=== PATIENT | female | born 1960 | race Caucasian/White ===

== ENCOUNTER 2017-04-04 13:28 | Emergency (ER) | payer BC ==
[2017-04-04] MEDS ORDERED: HYDROmorphone* 1 MG/ML 1 ML SYR IM ONE (14:15)
--- NOTE | 2017-04-04 14:56 | RAD ---
INDICATION: Right wrist injury. TECHNIQUE: 3 views of the right wrist were obtained. FINDINGS: There is diffuse soft tissue swelling around the wrist which is most prominent along the lateral aspect of the wrist. There is an oblique fracture extending through the lateral aspect of the distal radius and radial styloid process to the articular margin. There is minimal distraction of the distal fracture fragment. There is also lucency which projects over the proximal portion of the scaphoid bone likely related to the radial fracture although a scaphoid fracture cannot be excluded. IMPRESSION: 1. OBLIQUE INTRA-ARTICULAR FRACTURE OF THE DISTAL RADIUS. 2. THERE IS LUCENCY OVERLYING THE PROXIMAL SCAPHOID BONE LIKELY SECONDARY TO THE RADIAL FRACTURE ALTHOUGH A NONDISPLACED SCAPHOID FRACTURE CANNOT BE EXCLUDED. THIS CAN BE FURTHER EVALUATED WITH A CT OF THE WRIST.
--- NOTE | 2017-04-04 16:27 | RAD ---
INDICATION: Traumatic fracture right radius COMPARISON: Right wrist same date TECHNIQUE: Noncontrast axial source images were obtained followed by coronal and sagittal reconstructions. FINDINGS: There is a nondisplaced fracture the radial styloid. There are no other fractures. Specifically there is no evidence of a navicular fracture. The carpals articulate normally. There is mild diffuse soft tissue swelling. No additional findings IMPRESSION: NONDISPLACED FRACTURE RADIAL STYLOID.
--- NOTE | 2017-04-04 16:42 | ED ---
Tigre Gardner Benjamin, scribed for Fariha Sage MD on 04/04/17 at 1437 . Upper Extremity Pain - HPI Summary HPI Summary: 56yo female c/o right wrist pain after a mechanical fall landing on her right hand 3 days ago. Pt has chronic back pain and neck pain which she takes 4mm QID dilaudid and 75 mcg fentanyl patch every 48hrs. Pt also reports pain in right hip and right shoulder. - History of Current Complaint Chief Complaint: EDExtremityUpper Stated Complaint: RIGHT WRIST PAIN Time Seen by Provider: 04/04/17 13:58 Hx Obtained From: Patient Mechanism Of Injury: Fall From A Standing Position Onset/Duration: Started Days Ago - 3 days, Still Present Timing: Constant Severity Initially: Severe Severity Currently: Severe Pain Location: Shoulder - right, Wrist - right, Other: - right hip Aggravating Factor(s): Movement, Abduction, Adduction, Twisting Alleviating Factor(s): Nothing Associated Signs & Symptoms: Positive: Negative - Allergies/Home Medications Allergies/Adverse Reactions: Allergies Allergy/AdvReac Type Severity Reaction Status Date / Time Codeine Allergy GI Upset Verified 02/08/17 13:20 PMH/Surg Hx/FS Hx/Imm Hx Endocrine/Hematology History: Denies: Hx Diabetes, Hx Systemic Lupus Erythematosus Cardiovascular History: Reports: Hx Congestive Heart Failure, Hx Hypertension Respiratory History: Reports: Hx Chronic Obstructive Pulmonary Disease (COPD) History: Denies: Hx Dialysis, Hx Renal Disease Musculoskeletal History: Reports: Hx Arthritis, Hx Rheumatoid Arthritis, Hx Back Problems Sensory History: Reports: Hx Contacts or Glasses Opthamlomology History: Reports: Hx Contacts or Glasses Neurological History: Reports: Hx Headaches - Cancer History Hx Chemotherapy: No - Surgical History Surgery Procedure, Year, and Place: T&A, D&C, tubal ligation, broken nose repair and cheek repair, R hip surgery, Infectious Disease History: Denies: Traveled Outside the [place] in Last 30 Days - Family History Known Family History: Negative: Hypertension, Diabetes - Social History Occupation: Disabled Lives: With Family Alcohol Use: Occasionally Alcohol Amount: 1-3/week Substance Use Type: Reports: None Smoking Status (MU): Former Smoker Review of Systems Constitutional: Negative Eyes: Negative ENT: Negative Cardiovascular: Negative Respiratory: Negative Gastrointestinal: Negative Genitourinary: Negative Positive: Arthralgia - right wrist, right shoulder, right hip Skin: Negative Neurological: Negative Psychological: Normal All Other Systems Reviewed And Are Negative: Yes Physical Exam Triage Information Reviewed: Yes Vital Signs On Initial Exam: Initial Vitals Temp Pulse Resp BP Pulse Ox 96.9 F 74 18 134/86 100 04/04/17 13:30 04/04/17 13:30 04/04/17 13:30 04/04/17 13:30 04/04/17 13:30 Vital Signs Reviewed: Yes Appearance: Positive: Well-Appearing, Well-Nourished, Pain Distress - mild Skin: Positive: Warm, Skin Color Reflects Adequate Perfusion, Dry Head/Face: Positive: Normal Head/Face Inspection Eyes: Positive: EOMI, JERSON ENT: Positive: Normal ENT inspection Neck: Positive: Supple, Nontender Respiratory/Lung Sounds: Positive: Clear to Auscultation, Breath Sounds Present Cardiovascular: Positive: RRR Abdomen Description: Positive: Nontender, Soft Bowel Sounds: Positive: Present Musculoskeletal: Positive: Limited @ - limited ROM at right wrist due to pain, Pain @ - right wrist - distal radius over the scaphoid tenderness, no other brant tenderness. Neurological: Positive: Sensory/Motor Intact, Alert, Oriented to Person Place, Time, CN Intact II-III Psychiatric: Positive: Affect/Mood Appropriate Procedures - Splinting Location: right arm Hand-Made Type: orthoglass Splint: sugar-tong Pre-Proc Neuro Vasc Exam: normal Post-Proc Neuro Vasc Exam: unchanged from pre-exam Diagnostics - Vital Signs Vital Signs Temp Pulse Resp BP Pulse Ox 04/04/17 13:30 96.9 F 74 18 134/86 100 - Laboratory Lab Statement: Any lab studies that have been ordered have been reviewed, and results considered in the medical decision making process. - Radiology Right Wrist XR Xray Interpretation: Positive (See Comments) - IMPRESSION: 1. OBLIQUE INTRA- ARTICULAR FRACTURE OF THE DISTAL RADIUS. 2. THERE IS LUCENCY OVERLYING THE PROXIMAL SCAPHOID BONE LIKELY SECONDARY TO THE RADIAL FRACTURE ALTHOUGH A NONDISPLACED SCAPHOID FRACTURE CANNOT BE EXCLUDED. THIS CAN BE FURTHER EVALUATED WITH A CT OF THE WRIST. Radiology Interpretation Completed By: Radiologist - CT CT LUE WO CT Interpretation: Positive (See Comments) - IMPRESSION: NONDISPLACED FRACTURE RADIAL STYLOID. CT Interpretation Completed By: Radiologist Course/Dx - Course Course Of Treatment: Reviewed pt's medications list and allergies. Blood pressure noted. Discussed with Dr. Santiago (Ortho) for an ortho consult at 1504. - Diagnoses Provider Diagnoses: Wrist fracture Discharge - Discharge Plan Condition: Critical Disposition: HOME Patient Education Materials: Wrist Fracture in Adults (ED) Referrals: Douglas Peguero DO [Primary Care Provider] - Desmond Santiago MD [Medical Doctor] - 2 Days (04/06/17 at 8:30am.) The documentation as recorded by the Tigre bailey Benjamin accurately reflects the service I personally performed and the decisions made by me, Fariha Sage MD.
[2017-04-04 16:53] VITALS: BP 114/76
== END 2017-04-04 16:42 | disposition home or self-care (01) ==
LOC: ED 13:28
DX: S52.571A Other intraarticular fracture of lower end of right radius, initial encounter for closed fracture (principal); S52.514A Nondisplaced fracture of right radial styloid process, initial encounter for closed fracture; M25.511 Pain in right shoulder; M25.551 Pain in right hip; W19.XXXA Unspecified fall, initial encounter; Y93.9 Activity, unspecified; Y92.9 Unspecified place or not applicable; G89.29 Other chronic pain; M54.9 Dorsalgia, unspecified; M54.2 Cervicalgia; I50.9 Heart failure, unspecified; I10 Essential (primary) hypertension; J44.9 Chronic obstructive pulmonary disease, unspecified; Z88.5 Allergy status to narcotic agent; Z87.891 Personal history of nicotine dependence
CPT/HCPCS: 96372; 99282; J1170

== ENCOUNTER 2021-05-18 12:23 | Observation (INO) ==
[2021-05-18] MEDS ORDERED: NS 0.9% 1000 ml BAG 1,000 ML IV ONE (12:32)
[2021-05-18 12:40] LABS: ABS Eosinophils 0.1 10^3/ul (0-0.6); ABS Lymphocytes 1.2 10^3/ul (1.0-4.8); ABS Monocytes 0.8 10^3/ul (0-0.8); ABS Neutrophils 6.9 10^3/ul (1.5-7.7); Eosinophil % 1.4 %; Hematocrit 45 % (35-47); Hemoglobin 15.3 g/dL (12.0-16.0); Lymphocyte % 13.2 %; Mean Corpuscular HGB Conc 34 g/dL (31-36); Mean Corpuscular Hemoglobin 34 pg (27-31); Mean Corpuscular Volume 98 fL (80-97); Mean Platelet Volume 8.2 fL (7.4-10.4); Nucleated Red Blood Cells % 0.1; Platelet Count 254 10^3/uL (150-450); Red Blood Count 4.57 10^6 /uL (3.70-4.87); Red Cell Distribution Width 14 % (10-15); White Blood Count 9.1 10^3/uL (3.5-10.8)
[2021-05-18] MEDS ORDERED: Iodixanol (CONTRAST) 320 MG/ML 100 ML SDV IV ONE (12:49)
[2021-05-18 12:52] LABS: Activated Partial Thrombo Time 27.4 seconds (26.0-38.0)
[2021-05-18 13:25] LABS: Albumin 4.2 g/dL (3.2-5.2); Albumin/Globulin Ratio 1.4 (1-3); Calcium 9.3 mg/dL (8.6-10.3); EGFR African American 94.7 (>60); EGFR Non-African American 78.3 (>60); Globulin 3.1 g/dL (2-4); Potassium 3.9 mmol/L (3.5-5.0); Total Bilirubin 1.1 mg/dL (0.2-1.0); Total Protein 7.3 g/dL (6.4-8.9)
[2021-05-18 13:47] LABS: C Reactive Protein 41.14 mg/L (<8.01)
[2021-05-18 14:14] LABS: Rapid COVID-19 Molecular Undetected (Undetected)
[2021-05-18 14:28] LABS: TSH Ultra Thyroid Stim Horm 1.29 mcIU/mL (0.34-5.60)
[2021-05-18] MEDS ORDERED: Metoprolol Tartrate 5 mg VIAL 5 ml VIAL (1 mg/ml) IV ONE (14:36)
[2021-05-18 17:02] LABS: Erythrocyte Sed Rate 5 mm/Hr (0-29)
[2021-05-18 19:43] LABS: Hepatitis B Surface Antigen Nonreactive (Nonreactive)
[2021-05-18 19:48] LABS: Hepatitis A Ab IgM Negative (Negative)
[2021-05-18 19:49] LABS: Hepatitis B Core IgM Nonreactive (Nonreactive)
[2021-05-18 20:52] LABS: Hepatitis C Antibody Reactive (Negative)
[2021-05-18] MEDS: Vortioxetine 10 mg TAB (NF) PO SCH (23:44)
[2021-05-19] MEDS: Amphetamine/Dextroam ER 10(NF) 10 mg CAP.ER PO SCH (08:53)
[2021-05-19] MEDS ORDERED: Vortioxetine 10 mg TAB (NF) PO SCH (09:00)
[2021-05-19] MEDS: Mometasone/Formoter 100/5 MDI INH SCH ×2 (09:41→21:37)
[2021-05-19] MEDS ORDERED: Gadoteridol (CONTRAST) 279.3 MG/ML 10 ML IV ONE (14:09)
[2021-05-19] MEDS: Albuterol HFA INHALER 8 gm MDI INH PRN (21:38)
[2021-05-19] MEDS: Vortioxetine 10 mg TAB (NF) PO SCH (22:20)
[2021-05-20 06:02] LABS: ABS Eosinophils 0.2 10^3/ul (0-0.6); ABS Lymphocytes 1.6 10^3/ul (1.0-4.8); ABS Monocytes 0.4 10^3/ul (0-0.8); ABS Neutrophils 3.1 10^3/ul (1.5-7.7); Eosinophil % 3.7 %; Hematocrit 39 % (35-47); Lymphocyte % 29.5 %; Mean Corpuscular HGB Conc 33 g/dL (31-36); Mean Corpuscular Hemoglobin 34 pg (27-31); Mean Corpuscular Volume 101 fL (80-97); Mean Platelet Volume 8.3 fL (7.4-10.4); Platelet Count 235 10^3/uL (150-450); Red Blood Count 3.88 10^6 /uL (3.70-4.87); Red Cell Distribution Width 14 % (10-15); White Blood Count 5.3 10^3/uL (3.5-10.8)
[2021-05-20 06:29] LABS: Albumin 3.5 g/dL (3.2-5.2); Albumin/Globulin Ratio 1.3 (1-3); Calcium 8.7 mg/dL (8.6-10.3); EGFR African American 91.9 (>60); Globulin 2.6 g/dL (2-4); Potassium 3.8 mmol/L (3.5-5.0); Total Bilirubin 0.6 mg/dL (0.2-1.0); Total Protein 6.1 g/dL (6.4-8.9)
[2021-05-20] MEDS: Albuterol HFA INHALER 8 gm MDI INH PRN (08:09)
[2021-05-20] MEDS: Mometasone/Formoter 100/5 MDI INH SCH ×2 (08:18→23:26)
[2021-05-20] MEDS: Amphetamine/Dextroam ER 10(NF) 10 mg CAP.ER PO SCH (09:05)
[2021-05-20] MEDS ORDERED: Lactated Ringers 1000 ml BAG 1,000 ML IV ONE (11:03)
[2021-05-20 16:18] VITALS: BP 135/82
[2021-05-21] MEDS: Mometasone/Formoter 100/5 MDI INH SCH (08:39)
[2021-05-21 12:48] LABS: JO-1 Antibody <0.2 U; RNP Antibody, IgG <0.2 U; SS-A/Ro Antibody <0.2 U; SS-B/La Antibody <0.2 U; Sm (Smith) IgG Antibody <0.2 U
[2021-05-21 17:08] LABS: Cyclic Citrullinated Pept IgG <15.6 U
[2021-05-22 22:31] LABS: Anaplasma phagocytophilum Negative (Negative); B. miyamotoi PCR, B Negative (Negative); Babesia divergens/MO-1 Negative (Negative); Babesia ducani Negative (Negative); Ehrlichia chaffeensis Negative (Negative); Ehrlichia ewingii/canis Negative (Negative); Ehrlichia muris eauclairensis Negative (Negative)
[2021-05-23 12:35] LABS: Complement C3 125 mg/dL (75 - 175)
[2021-05-24 12:08] LABS: Cryoglobulin Negative %ppt (Negative)
== END 2021-05-20 19:15 | disposition home or self-care (01) ==
LOC: MED 12:23 → ED 12:23 → MED 19:14 → SUATTDRO 20:17
PROVIDERS: ADMIT Physician Assistant Medical; ATTEND Internal Medicine

== ENCOUNTER 2021-07-29 17:30 | Inpatient (IN) ==
[2021-07-29] MEDS ORDERED: Norepinephrine 16MCG/ML IVPRE 4,000 MCG/250 ML BAG IV ONE (17:42)
[2021-07-29 17:52] LABS: PCO2 Arterial 41 mmHg (35-45); PO2 Arterial 129 mmHg (80-100)
[2021-07-29 17:57] LABS: Urine Appearance Clear; Urine Bilirubin Negative (Negative); Urine Blood Negative (Negative); Urine Color Straw; Urine Glucose Negative (Negative); Urine Ketones Negative (Negative); Urine Nitrite Negative (Negative); Urine Protein Negative (Negative); Urine Specific Gravity 1.006 (1.002-1.030); Urine Urobilinogen Negative (Negative)
[2021-07-29] MEDS ORDERED: Norepinephrine 16MCG/ML IVPRE 4,000 MCG/250 ML BAG IV SCH (18:00)
[2021-07-29] MEDS ORDERED: Lactated Ringers 1000 ml BAG 1,000 ML IV SCH (18:00)
[2021-07-29 18:05] LABS: ABS Eosinophils 0.1 10^3/ul (0-0.6); ABS Lymphocytes 1.2 10^3/ul (1.0-4.8); ABS Monocytes 0.4 10^3/ul (0-0.8); ABS Neutrophils 2.3 10^3/ul (1.5-7.7); Eosinophil % 2.3 %; Hematocrit 38 % (35-47); Hemoglobin 12.8 g/dL (12.0-16.0); Lymphocyte % 30.4 %; Mean Corpuscular HGB Conc 33 g/dL (31-36); Mean Corpuscular Hemoglobin 34 pg (27-31); Mean Corpuscular Volume 102 fL (80-97); Mean Platelet Volume 8.2 fL (7.4-10.4); Platelet Count 245 10^3/uL (150-450); Red Blood Count 3.77 10^6 /uL (3.70-4.87); Red Cell Distribution Width 14 % (10-15)
[2021-07-29 18:15] LABS: Albumin 3.4 g/dL (3.2-5.2); Anion Gap 10 mmol/L (2-11); Blood Urea Nitrogen 10 mg/dL (6-24); CO2 Carbon Dioxide 21 mmol/L (22-32); Calcium 7.7 mg/dL (8.6-10.3); Chloride 109 mmol/L (101-111); Glucose 100 mg/dL (70-100); Magnesium 1.8 mg/dL (1.9-2.7); Potassium 3.1 mmol/L (3.5-5.0); Sodium 140 mmol/L (135-145); Total Protein 5.4 g/dL (6.4-8.9); eGFR CKD-EPI 81.5 (>60)
[2021-07-29 18:16] LABS: ALT 56 U/L (7-52); AST 67 U/L (13-39); Albumin/Globulin Ratio 1.7 (1-3); Alkaline Phosphatase 58 U/L (35-149); C Reactive Protein 1.45 mg/L (<8.01)
[2021-07-29] MEDS ORDERED: Magnesium Sulfate 2 gm BAG 2 GM/50 ML BAG IVPB ONE (18:22)
[2021-07-29 18:40] LABS: Influenza A Molecular Negative (Negative); Influenza B Molecular Negative (Negative); Rapid COVID-19 Molecular Undetected (Undetected)
[2021-07-29 18:49] LABS: Urine Benzodiazepine Screen None Detected (None Detect); Urine Cannabinoids Screen None Detected (None Detect); Urine Opiates Screen None Detected (None Detect)
[2021-07-29] MEDS ORDERED: Metoprolol Tartrate 5 mg VIAL 5 ml VIAL (1 mg/ml) IV ONE (18:58)
[2021-07-29 19:03] LABS: TSH Ultra Thyroid Stim Horm 1.88 mcIU/mL (0.34-5.60)
[2021-07-29] MEDS ORDERED: Azithromycin 500 mg/250 ml NS 500 MG/250 ML BAG IVPB ONE (19:14)
[2021-07-29 19:22] LABS: Phosphorus 3.5 mg/dL (2.5-5.0)
[2021-07-29] MEDS ORDERED: Albuterol/Ipratropium NEB.SOL (2.5/0.5 MG) 3 ML NEB.SOLN INH PRN (19:22)
[2021-07-29] MEDS ORDERED: Meperidine 50 mg/ml SYRINGE 1 ml IV PRN (19:23)
[2021-07-29] MEDS ORDERED: Sodium Bicarbonate 8.4% SYR 50 ml SYRINGE IV ONE (19:27)
[2021-07-29] MEDS ORDERED: Acetaminophen IV 1 GM/100ML 100 ML IV PRN (19:28)
[2021-07-29] MEDS ORDERED: Charcoal ACTIVATED 25 GM/120 ML BTL PO ONE (19:31)
[2021-07-29] MEDS: KCL 20 MEQ/100 ML IVPREMIX 20 MEQ/100 ML BAG IV SCH ×2 (19:32→22:22)
[2021-07-29] MEDS ORDERED: Propofol 10 MG/ML 20 ML BTL ONE (19:53)
[2021-07-29] MEDS ORDERED: Propofol 10 mg/ml 100 ML BTL 0 ML ONE (19:54)
[2021-07-29] MEDS: cefTRIAXone 1 gm/50 mL NS BAG 1 GM/50 ML BAG IVPB SCH (20:00)
[2021-07-29] MEDS ORDERED: Propofol 10 MG/ML 20 ML BTL IV PUSH ONE (20:16)
[2021-07-29] MEDS: Pantoprazole VIAL 40 MG VIAL IV SCH (20:48)
[2021-07-29] MEDS ORDERED: Heparin 5000 UNITS/ML 1 mL VIAL SUBCUT SCH (22:00)
[2021-07-29] MEDS ORDERED: fentaNYL 100 mcg/2 ml 50 MCG/ML VIAL ONE (22:05)
[2021-07-29] MEDS: fentaNYL 100 mcg/2 ml 50 MCG/ML VIAL IV SLOW PU PRN ×2 (22:06→23:03)
[2021-07-29 22:12] LABS: Acetaminophen < 15 mcg/mL; Alcohol, S 204 mg/dL (<13); Salicylate < 2.50 mg/dL (<30)
[2021-07-29] MEDS: Chlorhexidine MOUTHWASH 0.12% 15 ML UDC TOPICAL SCH (22:52)
[2021-07-29] MEDS ORDERED: Dexmedetomidine 1,000 MCG in NS 0.9% 250 ml 240 ML IV SCH (23:00)
[2021-07-29] MEDS ORDERED: Propofol 10 mg/ml 100 ML BTL 100 ML IV SCH (23:00)
[2021-07-29] MEDS ORDERED: Lactated Ringers 1000 ml BAG 1,000 ML IV ONE (23:40)
[2021-07-30 00:08] LABS: Creatine Kinase 47 U/L (10-223)
[2021-07-30] MEDS: KCL 20 MEQ/100 ML IVPREMIX 20 MEQ/100 ML BAG IV SCH ×2 (00:27→02:35)
[2021-07-30] MEDS: fentaNYL 100 mcg/2 ml 50 MCG/ML VIAL IV SLOW PU PRN ×3 (00:58→03:16)
[2021-07-30 00:59] LABS: Albumin 3.3 g/dL (3.2-5.2); Direct Bilirubin 0.1 mg/dL (0.03-0.18); Indirect Bilirubin 0.2 mg/dL (0.3-1.0); Total Bilirubin 0.3 mg/dL (0.2-1.0)
[2021-07-30 01:05] LABS: Albumin/Globulin Ratio 1.6 (1-3); Globulin 2.1 g/dL (2-4); Total Protein 5.4 g/dL (6.4-8.9)
[2021-07-30] MEDS: Chlorhexidine MOUTHWASH 0.12% 15 ML UDC TOPICAL SCH ×3 (02:46→08:06)
[2021-07-30 05:20] LABS: ABS Lymphocytes 0.9 10^3/ul (1.0-4.8); ABS Monocytes 0.7 10^3/ul (0-0.8); ABS Neutrophils 5.8 10^3/ul (1.5-7.7); Eosinophil % 0.4 %; Hematocrit 37 % (35-47); Hemoglobin 12.5 g/dL (12.0-16.0); Lymphocyte % 12.6 %; Mean Corpuscular HGB Conc 34 g/dL (31-36); Mean Corpuscular Hemoglobin 34 pg (27-31); Mean Corpuscular Volume 101 fL (80-97); Mean Platelet Volume 8.1 fL (7.4-10.4); Platelet Count 193 10^3/uL (150-450); Red Blood Count 3.66 10^6 /uL (3.70-4.87); Red Cell Distribution Width 14 % (10-15); White Blood Count 7.4 10^3/uL (3.5-10.8)
[2021-07-30 05:23] LABS: INR 1.04 (0.86-1.15)
[2021-07-30 05:30] LABS: Albumin 3.2 g/dL (3.2-5.2); Albumin/Globulin Ratio 1.4 (1-3); Calcium 7.7 mg/dL (8.6-10.3); Globulin 2.3 g/dL (2-4); Phosphorus 3.1 mg/dL (2.5-5.0); Total Bilirubin 0.4 mg/dL (0.2-1.0); Total Protein 5.5 g/dL (6.4-8.9); eGFR CKD-EPI 104.8 (>60)
[2021-07-30] MEDS: Saline FLUSH-CENTRAL 10 ML SYRINGE CENT\\PICC SCH (12:46)
[2021-07-30] MEDS ORDERED: Albuterol HFA INHALER 8 gm MDI INH PRN (13:38)
[2021-07-30] MEDS ORDERED: Metoprolol Tartrate 5 mg VIAL 5 ml VIAL (1 mg/ml) IV ONE (17:56)
[2021-07-30] MEDS: Multivitamins/Minerals TAB PO SCH (19:48)
[2021-07-30] MEDS: Pantoprazole VIAL 40 MG VIAL IV SCH (19:48)
[2021-07-30] MEDS: cefTRIAXone 1 gm/50 mL NS BAG 1 GM/50 ML BAG IVPB SCH (20:13)
[2021-07-30] MEDS ORDERED: CMCS: Vortioxetine 10 mg TAB (NF) PO SCH (22:00)
[2021-07-31] MEDS: Saline FLUSH-CENTRAL 10 ML SYRINGE CENT\\PICC SCH ×2 (02:44→10:05)
[2021-07-31 04:33] LABS: ABS Eosinophils 0.2 10^3/ul (0-0.6); ABS Lymphocytes 1.2 10^3/ul (1.0-4.8); ABS Monocytes 0.6 10^3/ul (0-0.8); ABS Neutrophils 3.4 10^3/ul (1.5-7.7); Eosinophil % 3.4 %; Hematocrit 35 % (35-47); Hemoglobin 11.8 g/dL (12.0-16.0); Lymphocyte % 22.4 %; Mean Corpuscular HGB Conc 34 g/dL (31-36); Mean Corpuscular Hemoglobin 34 pg (27-31); Mean Corpuscular Volume 100 fL (80-97); Mean Platelet Volume 8.1 fL (7.4-10.4); Platelet Count 188 10^3/uL (150-450); Red Cell Distribution Width 14 % (10-15); White Blood Count 5.4 10^3/uL (3.5-10.8)
[2021-07-31 04:49] LABS: Calcium 8.1 mg/dL (8.6-10.3); Phosphorus 3.3 mg/dL (2.5-5.0); Potassium 3.9 mmol/L (3.5-5.0); eGFR CKD-EPI 100.8 (>60)
[2021-07-31] MEDS ORDERED: Mometasone/Formoter 100/5 MDI INH SCH (07:00)
[2021-07-31] MEDS ORDERED: Potassium Chlor 20 meq TAB.ER PO ONE (07:24)
[2021-07-31] MEDS ORDERED: Lidocaine PATCH 5% PATCH TRANSDERM PRN (08:39)
[2021-07-31] MEDS ORDERED: CMC:Vortioxetine 10 mg TAB (NF) PO SCH (09:00)
[2021-07-31] MEDS: Multivitamins/Minerals TAB PO SCH (09:25)
[2021-07-31] MEDS ORDERED: Metoprolol Tartrate 5 mg VIAL 5 ml VIAL (1 mg/ml) IV PRN (09:56)
[2021-07-31 12:45] VITALS: BP 92/59
[2021-07-31] MEDS ORDERED: Lidocaine Patch REMOVE NOTE PATCH OFF SCH (21:00)
[2021-08-01] MEDS ORDERED: Nicotine PATCH 14 MG/24 HR PATCH TRANSDERM SCH (09:00)
== END 2021-07-31 12:24 | disposition short-term general hospital (02) | DRG 951 ==
LOC: ED 17:30 → EDHOLD 18:37 → ICU 19:29
PROVIDERS: ADMIT Internal Medicine; ATTEND Internal Medicine

== ENCOUNTER 2021-07-31 12:24 | Inpatient (IN) ==
[~2021-07-31 12:24] MED LIST: Albuterol HFA INHALER 8 gm MDI INH PRN; Nicotine GUM 2MG FRUIT FLAVOR PO PRN
[2021-07-31] MEDS ORDERED: Nicotine Lozenge mini 2 MG LOZNG.MINI MT PRN (15:00)
[2021-07-31] MEDS: Lidocaine PATCH 5% PATCH TRANSDERM SCH (15:39)
[2021-07-31] MEDS: CMCS:Ketorolac 10 mg TAB (NF) PO PRN ×2 (15:40→20:50)
[2021-07-31] MEDS: Mometasone/Formoter 100/5 MDI INH SCH (20:45)
[2021-07-31] MEDS: CMCS:Vortioxetine 10 mg TAB (NF) PO SCH (20:46)
[2021-07-31] MEDS: Albuterol/Ipratropium NEB.SOL (2.5/0.5 MG) 3 ML NEB.SOLN INH SCH (21:44)
[2021-08-01] MEDS: Albuterol/Ipratropium NEB.SOL (2.5/0.5 MG) 3 ML NEB.SOLN INH SCH ×2 (01:06→05:19)
[2021-08-01] MEDS: CMCS:Ketorolac 10 mg TAB (NF) PO PRN (04:49)
[2021-08-01] MEDS: Lidocaine Patch REMOVE NOTE PATCH OFF SCH ×2 (04:59→23:27)
[2021-08-01] MEDS ORDERED: Albuterol/Ipratropium NEB.SOL (2.5/0.5 MG) 3 ML NEB.SOLN INH PRN (06:13)
[2021-08-01] MEDS: Lidocaine PATCH 5% PATCH TRANSDERM SCH (08:05)
[2021-08-01 08:30] LABS: HDL Cholesterol 68.7 mg/dL
[2021-08-01] MEDS: Mometasone/Formoter 100/5 MDI INH SCH ×2 (08:55→21:03)
[2021-08-01] MEDS: Nicotine PATCH 14 MG/24 HR PATCH TRANSDERM SCH (08:57)
[2021-08-01] MEDS: CMCS:Vortioxetine 10 mg TAB (NF) PO SCH (21:05)
[2021-08-02] MEDS: CMCS:Ketorolac 10 mg TAB (NF) PO PRN ×4 (02:05→21:43)
[2021-08-02] MEDS: Nicotine PATCH 14 MG/24 HR PATCH TRANSDERM SCH (08:49)
[2021-08-02] MEDS: Lidocaine PATCH 5% PATCH TRANSDERM SCH (08:50)
[2021-08-02] MEDS: Mometasone/Formoter 100/5 MDI INH SCH ×2 (08:52→20:51)
[2021-08-02] MEDS: Lidocaine Patch REMOVE NOTE PATCH OFF SCH (20:54)
[2021-08-03] MEDS: CMCS:Ketorolac 10 mg TAB (NF) PO PRN ×3 (04:46→18:47)
[2021-08-03] MEDS: Mometasone/Formoter 100/5 MDI INH SCH ×2 (08:51→20:37)
[2021-08-03] MEDS: Lidocaine PATCH 5% PATCH TRANSDERM SCH (08:51)
[2021-08-03] MEDS: Nicotine PATCH 14 MG/24 HR PATCH TRANSDERM SCH (08:52)
[2021-08-03] MEDS: Lidocaine Patch REMOVE NOTE PATCH OFF SCH (20:49)
[2021-08-04] MEDS: CMCS:Ketorolac 10 mg TAB (NF) PO PRN (05:08)
[2021-08-04] MEDS: Nicotine PATCH 14 MG/24 HR PATCH TRANSDERM SCH (08:26)
[2021-08-04] MEDS: Lidocaine PATCH 5% PATCH TRANSDERM SCH (08:26)
[2021-08-04] MEDS: Mometasone/Formoter 100/5 MDI INH SCH ×2 (08:28→20:23)
[2021-08-04] MEDS: Lidocaine Patch REMOVE NOTE PATCH OFF SCH (20:23)
[2021-08-05] MEDS: Mometasone/Formoter 100/5 MDI INH SCH (07:36)
[2021-08-05] MEDS: Lidocaine PATCH 5% PATCH TRANSDERM SCH (07:40)
[2021-08-05] MEDS: Nicotine PATCH 14 MG/24 HR PATCH TRANSDERM SCH (07:42)
[2021-08-05 09:02] VITALS: BP 157/90
== END 2021-08-05 15:00 | disposition home or self-care (01) | DRG 753 ==
LOC: BSU 12:24
PROVIDERS: ADMIT Psychiatry & Neurology Psychiatry; ATTEND Psychiatry & Neurology Psychiatry